=== PATIENT | male | born 1965 | race Caucasian/White ===

== ENCOUNTER 2016-09-29 14:06 | Outpatient (RCR) ==
[2016-06-22 04:19] VITALS: BMI 26.6
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
--- NOTE | 2016-10-04 14:58 | RS.CXNS ---
Date of scheduled appointment: 10/04/16 Type: Cancel Reason for Cancel/NS: unknown
== END 2016-10-04 ==
DX: S52.514D Nondisplaced fracture of right radial styloid process, subsequent encounter for closed fracture with routine healing (principal); S80.2 Other superficial injuries of knee

== ENCOUNTER 2016-10-18 14:00 | Outpatient (RCR) ==
[2016-06-22 04:19] VITALS: BMI 26.6
--- NOTE | 2016-10-11 14:01 | RS.OPPTDN ---
Subjective Date of Note: 10/11/16 Visit #: 2 Date of Evaluation: 09/29/16 Treatment Diagnosis: Muscle weakness right wrist and knee Current Subjective/complaints:: Patient reports minimal pain,dependent upon what activity he is doing. Pain Assessment - Pain Description Pain Location: Right wrist and knee on occasion only. Current Pain Intensity: Minimal only in R wrist and R knee Interventions - Exercise/Activities/Manual Therapy Exercises/Activities: 40 mins. total of AROM to R wrist with 2#,for extension , flexion radial/ulnar deviation.Supine R LE strengthening with 3 # for heelslides ,SAQ's,SLR's.All exercises 3/15 reps.R molder vacuum strength @ 75 # today. Total minutes of Exercise: 40 Manual Therapy: NA Total minutes of Manual Therapy: 0 - Charges Total Direct Minutes: 40 Total Treatment Time: 40 Procedures billed for this date of service:: ex 3 Assessment: Patient tolerates exercises very well,does fatigue slightly with eccentric motions today,but has good technque for each exercises. Patient Education: Body/Joint mechanics, Education of Plan of Care Short Term Goals Goal #1: Independent with basic HEP Goal to be met by: 10/14/16 Progress towards Goal:: Progressing Goal #2: Gear Coding Machine Operator strength increased to 80 lbs on right. Goal to be met by: 10/14/16 (75#) Progress towards Goal:: Progressing Goal #3: Eliminate right wrist pain. Goal to be met by: 10/14/16 Progress towards Goal:: Progressing Jail Goals Goal #1: 5/5 right wrist strength Goal to be met by: 10/28/16 Progress towards goal: Progressing Goal #2: Right knee strength 5/5 Goal to be met by: 10/28/16 Progress towards goal: Progressing Goal #3: Normalize gait pattern. Goal to be met by: 10/28/16 Progress towards goal: Progressing Goal #4: Independent with DC HEP. Goal to be met by: 10/28/16 Progress towards goal: Progressing Plan PLAN OF CARE EXPIRES ON:: 10/28/16 ORDER # VISITS AND/OR THROUGH DATE: 10/28/2016 PLAN: Progress Exercises
--- NOTE | 2016-10-13 14:08 | RS.OPPTDN ---
Subjective Date of Note: 10/13/16 Visit #: 3 Date of Evaluation: 09/29/16 Treatment Diagnosis: Muscle weakness right wrist and knee Current Subjective/complaints:: Reports he was okay on the day of last PT session,but yesterday had increased soreness in the R hip flexors from the SLR with resistance,but did not bother the R knee. Pain Assessment - Pain Description Pain Location: Right wrist and R knee. Pain Description: Dull, Aching Pain Description: muscle soreness ni the R hip flexors Current Pain Intensity: 1-2 - Heat/Cryotherapy Treatment: Hot Pack (20 mins. prior to exercises) Interventions - Exercise/Activities/Manual Therapy Exercises/Activities: 30 mins. total of AROM to R wrist with 2-3##,for extension ,flexion radial/ulnar deviation.Wrist biofuels plant superintendent strength @ 80# on second attempt.Ended session with 3/15 reps. on leg press @ 75# x2 sets.,120# x 1 set.Seated calf raises @ 75# x 20 reps. Total minutes of Exercise: 30 Manual Therapy: NA Total minutes of Manual Therapy: 0 HOME EXERCISE PROGRAM: AROM in all directions for wrist ,LE strengthening of AROM in PAIN FREE ROM. - Charges Total Direct Minutes: 30 Total Treatment Time: 50 Procedures billed for this date of service:: hp,ex 2 Assessment: R wrist AROM is WNL,gripis now equal to L.The LE is also progressing with no patellar pain with exercises today. Patient Education: Education of diagnosis Short Term Goals Goal #1: Independent with basic HEP Goal to be met by: 10/14/16 Progress towards Goal:: Partially Met Goal #2: Handkerchief Presser strength increased to 80 lbs on right. Goal to be met by: 10/14/16 (80#) Progress towards Goal:: Met Goal #3: Eliminate right wrist pain. Goal to be met by: 10/14/16 Progress towards Goal:: Progressing Care Home Goals Goal #1: 5/5 right wrist strength Goal to be met by: 10/28/16 Progress towards goal: Partially Met Goal #2: Right knee strength 5/5 Goal to be met by: 10/28/16 Progress towards goal: Partially Met Goal #3: Normalize gait pattern. Goal to be met by: 10/28/16 Progress towards goal: Progressing Goal #4: Independent with DC HEP. Goal to be met by: 10/28/16 Progress towards goal: Progressing Plan PLAN OF CARE EXPIRES ON:: 10/28/16 ORDER # VISITS AND/OR THROUGH DATE: 10/28/2016 PLAN: Progress Exercises
--- NOTE | 2016-10-18 14:36 | RS.QUICKDC ---
Discharge from PT Date of Discharge: 10/18/16 Number of Visits: 4 Reason for Discharge: Patient reports doing well,R care rep strength @ 75-77#,L care rep @ 80#.He reports no wrist or knee pain today.All rehab goals met.
== END 2016-11-01 ==
DX: S52.514D Nondisplaced fracture of right radial styloid process, subsequent encounter for closed fracture with routine healing (principal); S80.2 Other superficial injuries of knee

== ENCOUNTER 2017-11-16 09:53 | Outpatient (CLI) ==
[2016-06-22 04:19] VITALS: BMI 26.6
--- NOTE | 2017-11-16 11:05 | CT ---
EXAM: CT Abdomen without contrast. CT Pelvis without contrast. HISTORY: Upper abdominal pain. Hernia. COMPARISON: None available. TECHNIQUE: Multiple axial images of the abdomen and pelvis were obtained without intravenous contras t. Images were reformatted in the sagittal and coronal plane. FINDINGS: Please note that evaluation of the abdominal and pelvic structures is limited due to lack of intravenous contrast. Emphysematous changes noted in the lung bases. There are is a 0.3 cm right lower lobe nodule on axia l image 6. More linear right middle lobe nodule noted on image 1. Degenerative changes noted in the spine.2. Gallbladder is absent. The liver, pancreas, spleen, adrenal glands, and kidneys demonstrate normal c ontour. No calcified renal stones or hydronephrosis identified. The bowel is normal in course and caliber without evidence for obstruction or inflammatory process. The appendix is not seen. There is a fat-containing hernia in the midline of the upper abdomen with defect measuring 0.7 cm on axial image 17 and sagittal image 64. The hernia sac measures approximately 2.9 x 1.8 x 2.2 cm. The re is no associated inflammation. Additional fat-containing hernia in the midline of the upper abdom en, more inferior to the previously described hernia, measures 0.8 cm transverse by 1 cm cranial caud al on axial image 33 and sagittal and 68. The hernia sac measures approximately 4.6 x 3 x 4.9 cm. N o adjacent inflammation identified. No free fluid or free air identified. Bladder is normal. Ather osclerotic calcifications are present. IMPRESSION: 1. Two fat-containing ventral hernias in the upper abdomen as described. 2. Right basilar micronodules. Follow-up CT in 6-12 months recommended for reassessment.
== END 2017-11-16 09:54 | disposition home or self-care (01) ==
LOC: RAD 09:53
PROVIDERS: ATTEND Surgery
DX: K43.2 Incisional hernia without obstruction or gangrene (principal)